=== PATIENT | female | born 2000 | race Caucasian/White ===

== ENCOUNTER 2019-07-25 17:31 | Emergency (ER) | payer OTHER ==
[2019-07-25 17:53] VITALS: BP 121/78
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
== END 2019-07-25 18:37 | disposition home or self-care (01) ==
LOC: ER 17:31
DX: O9A.211 Injury, poisoning and certain other consequences of external causes complicating pregnancy, first trimester (principal); M25.569 Pain in unspecified knee; V87.7XXA Person injured in collision between other specified motor vehicles (traffic), initial encounter; Z3A.11 11 weeks gestation of pregnancy
CPT/HCPCS: 99281

== ENCOUNTER 2020-02-08 04:55 | Inpatient (IN) | payer OTHER ==
[2020-02-08] MEDS ORDERED: CEFAZOLIN SODIUM 2 GM in DEXTROSE 5%-WATER 100 ML IV PRN (05:00)
[2020-02-08] MEDS ORDERED: RINGERS SOLUTION,LACTATED 1,000 ML IV ONE (05:45)
[2020-02-08 06:01] LABS: ABSOLUTE MONOCYTES (AUTO) 0.7 10^3/uL (0.1-1.4); BASOPHILS % (AUTO) 0.3 % (0-2); EOSINOPHILS % (AUTO) 0.5 % (0-6); HEMATOCRIT 34.7 % (36.0-47.0); HEMOGLOBIN 12.1 g/dL (12.0-15.5); LYMPHOCYTES % (AUTO) 20.9 % (13-45); MEAN CORPUSCULAR HEMOGLOBIN 30.8 pg (27.0-33.4); MEAN CORPUSCULAR HGB CONC 34.9 g/dL (32.0-36.0); MEAN CORPUSCULAR VOLUME 88 fl (80-97); MONOCYTES % (AUTO) 7.3 % (3-13); PLATELET COUNT 219 10^3/uL (150-450); RED BLOOD COUNT 3.93 10^6/uL (3.72-5.28); RED CELL DISTRIBUTION WIDTH 14.5 % (11.5-14.0); TOTAL CELLS COUNTED % (AUTO) 100 %; WHITE BLOOD COUNT 9.8 10^3/uL (4.0-10.5)
[2020-02-08] MEDS: RINGERS SOLUTION,LACTATED 1,000 ML IV PRN ×2 (06:37→15:37)
[2020-02-08 06:55] LABS: APPEARANCE,URINE CLEAR; BILIRUBIN,URINE NEGATIVE (NEGATIVE); COLOR,URINE YELLOW; GLUCOSE, URINE NEGATIVE (NEGATIVE); KETONES,URINE NEGATIVE (NEGATIVE); LEUKOCYTE ESTERASE,URINE NEGATIVE (NEGATIVE); NITRITE,URINE NEGATIVE (NEGATIVE); PROTEIN,URINE NEGATIVE (NEGATIVE); URINE SPECIFIC GRAVITY 1.013; UROBILINOGEN,URINE NEGATIVE mg/dL (<2.0)
[2020-02-08 07:09] LABS: URINE AMPHETAMINES SCREEN NEGATIVE; URINE BARBITURATES SCREEN NEGATIVE; URINE BENZODIAZEPINES SCREEN NEGATIVE; URINE COCAINE SCREEN NEGATIVE; URINE MARIJUANA (THC) SCREEN NEGATIVE; URINE METHADONE SCREEN NEGATIVE; URINE PHENCYCLIDINE SCREEN NEGATIVE
[2020-02-08] MEDS ORDERED: PHENYLEPHRINE HCL INJ/PF 10 MG/1 ML SDV ONE (07:25)
[2020-02-08] MEDS ORDERED: MIDAZOLAM 2 MG/2 ML INJ ONE (07:25)
[2020-02-08] MEDS ORDERED: ACETAMINOPHEN 1,000 MG/100 ML RTUPB IV ONE (07:25)
[2020-02-08] MEDS ORDERED: KETOROLAC TROMETHAMINE INJ/PF 30 MG/1 ML SDV ONE (07:25)
[2020-02-08] MEDS ORDERED: EPHEDRINE SULFATE INJ 50 MG/1 ML AMPULE ONE (07:25)
[2020-02-08] MEDS ORDERED: METHYLERGONOVINE MALEATE INJ/PF 0.2 MG/1 ML AMPULE ONE (07:25)
[2020-02-08] MEDS ORDERED: OXYTOCIN 10 UNIT/ML VIAL ONE (07:25)
[2020-02-08] MEDS ORDERED: ONDANSETRON HCL INJ/PF 4 MG/2 ML SDV ONE (07:25)
[2020-02-08] MEDS ORDERED: FENTANYL CITRATE INJ/PF 100 MCG/2 ML AMPUL ONE (07:25)
[2020-02-08] MEDS ORDERED: ACETAMINOPHEN 325 MG TABLET PO PRN (08:20)
[2020-02-08] MEDS ORDERED: OXYTOCIN/NORMAL SALINE 20 UNIT/1,000 ML RTUINJ IV PRN (08:20)
[2020-02-08] MEDS ORDERED: MEASLES,MUMPS&RUBELLA VACC/PF 0.5 ML VIAL SUBCUT PRN (08:20)
[2020-02-08] MEDS ORDERED: DIPH/PERTUSS(ACELL)/TETANUS VAC/PF 0.5 ML SYR (>=10YO) IM PRN (08:20)
[2020-02-08] MEDS ORDERED: MORPHINE SULFATE 10 MG/ML INJ IM PRN (08:20)
[2020-02-08] MEDS ORDERED: PROMETHAZINE HCL INJ 25 MG/1 ML VIAL IV PRN ×3 (08:20→08:21)
[2020-02-08] MEDS ORDERED: SIMETHICONE 80 MG TAB.CHEW PO PRN (08:20)
[2020-02-08] MEDS ORDERED: OXYCODONE-ACETAMINOPHEN 5-325 MG TABLET PO PRN ×2 (08:21)
[2020-02-08] MEDS ORDERED: DIPHENHYDRAMINE HCL 50 MG/ML VIAL IV PRN (08:21)
[2020-02-08] MEDS ORDERED: ONDANSETRON HCL INJ/PF 4 MG/2 ML SDV IV PRN (08:21)
[2020-02-08] MEDS ORDERED: MEPERIDINE HCL/PF INJ 25 MG/1 ML DISP.SYRIN IV PRN (08:21)
[2020-02-08] MEDS ORDERED: FENTANYL CITRATE INJ/PF 100 MCG/2 ML AMPUL IV PRN ×3 (08:21)
[2020-02-08] MEDS ORDERED: MORPHINE SULFATE 10 MG/ML INJ IV PRN (08:21)
--- NOTE | 2020-02-08 08:22 | PDOC DELIVERY SUMMARY ---
Delivery Summary - Maternal Hx : II Hx # Term Pregnancies: 1 Hx # Pregnancies: 1 TAMI: 02/14/20 Risk Factors: Previous Ruptured Membranes: AROM Fluids: Clear - Delivery Labor: Not In Labor Presentation: Vertex Uterine Contraction Monitoring: External : Scheduled Placenta: Within Normal Limits Nuchal Cord: No
--- NOTE | 2020-02-08 08:27 | Operative Report ---
Operative Report DATE OF SURGERY: 02/08/20 PREOPERATIVE DIAGNOSIS: IUP at term prior section POSTOPERATIVE DIAGNOSIS: Same OPERATION: Repeat low transverse section delivery of viable female infant SURGEON: JENNIE LEE ANESTHESIA: Spinal TISSUE REMOVED OR ALTERED: Placenta COMPLICATIONS: None ESTIMATED BLOOD LOSS: 900 cc PROCEDURE: The patient was taken to the operating room where spinal anesthesia was obtained and found to be adequate. She was then prepped and draped in the normal sterile fashion and placed in the dorsal supine position with a leftward tilt. A Pfannenstiel skin incision was then made and carried through to the underlying layers of the fascia with the scalpel. The fascia was incised in the midline and the incision extended laterally with the Razo scissors. The superior aspect of the fascial incision was then grasped with [place] clamps elevated and the underlying rectus muscles dissected off bluntly. Attention was then turned to the inferior aspect of the fascial incision which in a similar fashion was grasped, tented up with Marlen clamps, and the rectus muscles dissected off bluntly. The rectus muscles were then in the midline and the peritoneum at the amount identified and entered bluntly. The peritoneal incision was then extended superiorly and inferiorly with good visualization of the bladder. [The bladder blade was inserted and the vesicouterine peritoneum identified grasped with American pickups and entered sharply with the Metzenbaum scissors. His incision was then extended laterally with the Metzenbaum scissors and a bladder flap created digitally. The bladder blade was then reinserted and the lower uterine segment incised in a transverse fashion with the scalpel. The uterine incision was then extended bluntly. The bladder blade was removed and the infant's head was delivered from cephalic presentation atraumatically. The nose and mouth were suctioned and the cord doubly clamped and cut. And the infant was handed off to waiting pediatricians. The placenta was then delivered manully and the uterus exteriorized and cleared of all clots and debris. The uterine incision was then repaired with 1-0 Vicryl in a running locked fashion. A second layer of the same suture was used to obtain hemostasis via imbrication of the initial layer. The uterus was returned to the patient's abdomen. The gutters were cleared of all clots and debris. All operative sites were noted to be hemostatic. The fascia was reapproximated with 0 Vicryl in a running fashion from each lateral edge to the midline. The patient tolerated the procedure well. Sponge lap needle and instrument counts are correct -2. 2 g of Ancef were given prior to skin incision. The patient was taken to the recovery area awake and in stable condition.
[2020-02-08] MEDS ORDERED: OXYTOCIN/NORMAL SALINE 20 UNIT/1,000 ML RTUINJ ONE (08:56)
[2020-02-08] MEDS ORDERED: MORPHINE SULFATE 10 MG/ML INJ ONE (09:57)
[2020-02-08] MEDS: PRENATAL VITAMIN W DHA CAPSULE PO SCH (12:20)
[2020-02-08] MEDS: DOCUSATE SODIUM 100 MG CAPSULE PO SCH ×2 (12:20→17:48)
[2020-02-08] MEDS: OXYCODONE-ACETAMINOPHEN 5-325 MG TABLET PO PRN (13:10)
[2020-02-08] MEDS: KETOROLAC TROMETHAMINE INJ/PF 30 MG/1 ML SDV IV SCH ×2 (15:37→21:34)
[2020-02-09] MEDS: KETOROLAC TROMETHAMINE INJ/PF 30 MG/1 ML SDV IV SCH (05:41)
[2020-02-09 06:05] LABS: HEMATOCRIT 33.9 % (36.0-47.0); HEMOGLOBIN 11.6 g/dL (12.0-15.5); MEAN CORPUSCULAR HEMOGLOBIN 30.6 pg (27.0-33.4); MEAN CORPUSCULAR HGB CONC 34.1 g/dL (32.0-36.0); MEAN CORPUSCULAR VOLUME 90 fl (80-97); PLATELET COUNT 187 10^3/uL (150-450); RED BLOOD COUNT 3.78 10^6/uL (3.72-5.28); RED CELL DISTRIBUTION WIDTH 14.8 % (11.5-14.0); WHITE BLOOD COUNT 11.5 10^3/uL (4.0-10.5)
[2020-02-09] MEDS: DOCUSATE SODIUM 100 MG CAPSULE PO SCH ×2 (09:18→17:32)
[2020-02-09] MEDS: PRENATAL VITAMIN W DHA CAPSULE PO SCH (09:18)
--- NOTE | 2020-02-09 13:52 | PDOC PROGRESS REPORT ---
Subjective-OB Progress Note for:: 02/09/20 Subjective: reports bleeding slowing, pain controlled with current meds. denies needs. +passing gas Physical Exam (OB) Vital Signs: Temp Pulse Resp BP Pulse Ox 97.7 F 79 18 124/63 96 02/09/20 11:26 02/09/20 11:26 02/09/20 11:26 02/09/20 11:26 02/09/20 11:26 Intake & Output 02/08/20 02/09/20 02/10/20 06:59 06:59 06:59 Intake Total 1000 4260 Output Total 3150 Balance 1000 1110 Weight 98.883 kg - Dressing Removed: Yes Incision: Well Approximated - Abdomen Description: Tender, Soft Hernia Present: No Fundal Description: Firm, Midline Fundal Height: u/u - u/2 - Abdominal Distension: No distension - Extremities Lower extremities: Artis's sign - neg Calf: Normal, Nontender Objective-Diagnostic Laboratory: 02/09/20 05:39 02/09/20 05:39 WBC 11.5 H RBC 3.78 Hgb 11.6 L Hct 33.9 L MCV 90 MCH 30.6 MCHC 34.1 RDW 14.8 H Plt Count 187 Assessment and Plan(PN) - Time Spent with Patient Time with patient: Less than 15 minutes - Disposition Anticipated Discharge: Home Within: within 48 hours
[2020-02-09] MEDS: IBUPROFEN 800 MG TABLET PO SCH ×3 (14:15→23:53)
[2020-02-09] MEDS: OXYCODONE-ACETAMINOPHEN 5-325 MG TABLET PO PRN ×2 (14:46→23:54)
[2020-02-10] MEDS: IBUPROFEN 800 MG TABLET PO SCH ×2 (06:06→12:05)
--- NOTE | 2020-02-10 10:19 | PDOC DISCHARGE SUMMARY ---
Impression - Admit/DC Date/PCP Admission Date/Primary Care Provider: 02/08/20 04:55 Discharge Date: 02/10/20 - Additional Information Resuscitation Status: Full Code Discharge Diet: Regular Discharge Activity: Balance Activity w/Rest, No Lifting Over 10 Pounds, No Lifting/Push/Pulling, Pelvic Rest, No tub bath Prescriptions: Ibuprofen [Motrin 800 mg Tablet] 800 mg PO Q8HP PRN #60 tablet PRN Reason: Oxycodone HCl/Acetaminophen [Percocet 5-325 mg Tablet] 1 tab PO Q4HP PRN #30 tablet PRN Reason: Home Medications: Ibuprofen [Motrin 800 mg Tablet] 800 mg PO Q8HP PRN #60 tablet 02/10/20 Oxycodone HCl/Acetaminophen [Percocet 5-325 mg Tablet] 1 tab PO Q4HP PRN #30 tablet 02/10/20 Results Laboratory Results: WBC 11.5 10^3/uL (4.0-10.5) H 02/09/20 05:39 RBC 3.78 10^6/uL (3.72-5.28) 02/09/20 05:39 Hgb 11.6 g/dL (12.0-15.5) L 02/09/20 05:39 Hct 33.9 % (36.0-47.0) L 02/09/20 05:39 MCV 90 fl (80-97) 02/09/20 05:39 MCH 30.6 pg (27.0-33.4) 02/09/20 05:39 MCHC 34.1 g/dL (32.0-36.0) 02/09/20 05:39 RDW 14.8 % (11.5-14.0) H 02/09/20 05:39 Plt Count 187 10^3/uL (150-450) 02/09/20 05:39 Lymph % (Auto) 20.9 % (13-45) 02/08/20 05:48 Bent % (Auto) 7.3 % (3-13) 02/08/20 05:48 Eos % (Auto) 0.5 % (0-6) 02/08/20 05:48 Baso % (Auto) 0.3 % (0-2) 02/08/20 05:48 Absolute Neuts (auto) 7.0 10^3/uL (1.7-8.2) 02/08/20 05:48 Absolute Lymphs (auto) 2.0 10^3/uL (0.5-4.7) 02/08/20 05:48 Absolute Monos (auto) 0.7 10^3/uL (0.1-1.4) 02/08/20 05:48 Absolute Eos (auto) 0.0 10^3/uL (0.0-0.6) 02/08/20 05:48 Absolute Basos (auto) 0.0 10^3/uL (0.0-0.2) 02/08/20 05:48 Seg Neutrophils % 71.0 % (42-78) 02/08/20 05:48 Urine Color YELLOW 02/08/20 06:44 Urine Appearance CLEAR 02/08/20 06:44 Urine pH 6.0 (5.0-9.0) 02/08/20 06:44 Ur Specific [place] 1.013 02/08/20 06:44 Urine Protein NEGATIVE mg/dL (NEGATIVE) 02/08/20 06:44 Urine Glucose (UA) NEGATIVE mg/dL (NEGATIVE) 02/08/20 06:44 Urine Ketones NEGATIVE mg/dL (NEGATIVE) 02/08/20 06:44 Urine Blood NEGATIVE (NEGATIVE) 02/08/20 06:44 Urine Nitrite NEGATIVE (NEGATIVE) 02/08/20 06:44 Urine Bilirubin NEGATIVE (NEGATIVE) 02/08/20 06:44 Urine Urobilinogen NEGATIVE mg/dL (<2.0) 02/08/20 06:44 Ur Leukocyte Esterase NEGATIVE (NEGATIVE) 02/08/20 06:44 Urine WBC (Auto) 1 /HPF 02/08/20 06:44 Urine RBC (Auto) 0 /HPF 02/08/20 06:44 Urine Bacteria (Auto) TRACE /HPF 02/08/20 06:44 Squamous Epi Cells Auto 1 /HPF 02/08/20 06:44 Urine Mucus (Auto) RARE /LPF 02/08/20 06:44 Urine Ascorbic Acid NEGATIVE (NEGATIVE) 02/08/20 06:44 Urine Opiates Screen NEGATIVE 02/08/20 06:44 Urine Methadone Screen NEGATIVE 02/08/20 06:44 Ur Barbiturates Screen NEGATIVE 02/08/20 06:44 Ur Phencyclidine Scrn NEGATIVE 02/08/20 06:44 Ur Amphetamines Screen NEGATIVE 02/08/20 06:44 U Benzodiazepines Scrn NEGATIVE 02/08/20 06:44 Urine Cocaine Screen NEGATIVE 02/08/20 06:44 U Marijuana (THC) Screen NEGATIVE 02/08/20 06:44 Blood Type B POSITIVE 02/08/20 05:48 Antibody Screen NEGATIVE 02/08/20 05:48 Plan Plan of Treatment: follow up in one week at [facility] for incision check
[2020-02-10] MEDS: PRENATAL VITAMIN W DHA CAPSULE PO SCH (10:27)
[2020-02-10] MEDS: DOCUSATE SODIUM 100 MG CAPSULE PO SCH (10:27)
[2020-02-10 11:52] VITALS: BP 127/59
[2020-02-10] MEDS: OXYCODONE-ACETAMINOPHEN 5-325 MG TABLET PO PRN (12:05)
== END 2020-02-10 14:24 | disposition home or self-care (01) | DRG 788 ==
LOC: 2S 04:55
PROVIDERS: ADMIT Student in an Organized Health Care Education/Training Program; ATTEND Obstetrics & Gynecology Gynecology
PROC: 10D00Z1 Extraction of Products of Conception, Low, Open Approach (ICD-10-PCS; principal; 2020-02-08 07:45)
DX: O34.211 Maternal care for low transverse scar from previous cesarean delivery (principal); Z37.0 Single live birth
CPT/HCPCS: 1961; 36415; 59025; 80307; 81001; 85025; 85027; 86850; 86900; 86901; 94760; 94799; J0131; J0690; J1885; J2210; J2250; J2270; J2370; J2405; J2590; J3010; J3490; J7060; J7120